=== PATIENT | female | born 1970 | race African-American/Black ===

== ENCOUNTER → 2017-04-18 | Outpatient (CLI) | payer BC, OTHER ==
[~2017-04-18] MED LIST: CARISOPRODOL 3350 MG PO; COLACE100 MG PO; DOXYCYCLINE 10100 M1 PO; FLEXERIL PO; FLOVENT; HYDROCHLOROTHIA25 M1 PO; IBUPROFEN 600600 M1 PO; NORVASC10 MG PO; PERCOCET 5-3251 EACH PO; PERCOCET PO; PREDNISONE50 MG PO; PROAIR HFA8.5 GM IH; PROVENTIL IH; SYMBICORT160 MCG/4.; SYMBICORT160 MCG/4. INH; TIZANIDINE HCL4 MG PO; TYLENOL325 MG PO
== END ==
LOC: MRI 11:28
DX: M75.91 Shoulder lesion, unspecified, right shoulder (principal)

== ENCOUNTER → 2021-11-16 | Outpatient (CLI) | payer OTHER | LOC: BC 11:04 | PROVIDERS: ATTEND Family Medicine | DX: Z12.31 Encounter for screening mammogram for malignant neoplasm of breast (principal) ==